=== PATIENT | female | born 1950 | race Caucasian/White ===

== ENCOUNTER 2019-01-13 13:56 | Inpatient (IN) | payer MEDICARE, OTHER ==
[~2019-01-13] VITALS: Ht 165.1 cm; Wt 93.4 kg
--- NOTE | 2019-01-13 14:08 | NUR ---
BIB [facility],TRIP/FALL WHILE GOING INTO A BANK LANDING ON HER RIGHT HIP, (+) R LEG SHORTENING AND EXTERNAL ROTATION. CYMRAES-SPEAKING ONLY, SPEAKS SOME THAI. SHOWING SEVERE PAIN THROUGH FACIAL EXPRESSION. AOX4, VSS, RR EVEN AND UNLABORED ON RA. SKIN INTACT. FAMILY AT BEDSIDE. ON MONITOR AND MADE COMFORTABLE. READY FOR EVAL.
[2019-01-13] MEDS ORDERED: HYDROMORPHONE 1 MG/1 ML DISP.SYRIN ONE ×3 (14:20→17:57)
[2019-01-13] MEDS ORDERED: ONDANSETRON HCL/PF 4 MG/2 ML VIAL ONE (14:20)
[2019-01-13] MEDS ORDERED: HYDROMORPHONE INJ 2 MG/ML DISP.SYRIN IV ONE (14:30)
[2019-01-13] MEDS ORDERED: ONDANSETRON HCL/PF 4 MG/2 ML VIAL IVP ONE (14:30)
[2019-01-13 14:31] LABS: BASOPHILS # (AUTO) 0.1 /CMM (0.0-0.2); BASOPHILS % (AUTO) 1.2 % (0.0-2.0); EOSINOPHILS % (AUTO) 3.5 % (0.0-6.0); HEMATOCRIT 41 % (33-45); HEMOGLOBIN 12.9 g/dL (11.5-14.8); LYMPHOCYTES # (AUTO) 4.3 /CMM (0.8-4.8); LYMPHOCYTES % (AUTO) 36.9 % (20.0-44.0); MEAN CORPUSCULAR HGB CONC 31 g/dl (31.0-36.0); MEAN CORPUSCULAR VOLUME 72 fL (82-100); MONOCYTES # (AUTO) 0.7 /CMM (0.1-1.30); MONOCYTES % (AUTO) 6.4 % (2.0-12.0); NEUTROPHILS # (AUTO) 6.1 /CMM (1.8-8.9); PLATELET COUNT (AUTO) 243 /CMM (150-450); RED BLOOD CELL COUNT(AUTO) 5.75 MIL/uL (4.0-5.2); WHITE BLOOD COUNT (AUTO) 11.7 K/uL (4.3-11.0)
[2019-01-13 14:42] LABS: CALCIUM, SERUM 9.7 mg/dL (8.5-10.1); CARBON DIOXIDE 26 mmol/L (21-32); CHLORIDE 106 mmol/L (98-107); GLUCOSE 133 mg/dL (74-106); POTASSIUM 4.1 mmol/L (3.5-5.1); SODIUM SERUM 144 mmol/L (136-145); UREA NITROGEN, BLOOD 17 mg/dL (7-18)
[2019-01-13] MEDS ORDERED: ISON300T19 PO (15:11)
[2019-01-13] MEDS ORDERED: GABA-534 PO (15:11)
[2019-01-13] MEDS ORDERED: LORA0.5T PO (15:11)
[2019-01-13] MEDS ORDERED: AMLO10TA7 PO (15:11)
[2019-01-13] MEDS ORDERED: PYRI50TA12 PO (15:11)
[2019-01-13] MEDS ORDERED: FLUT1BLS IH (15:11)
[2019-01-13] MEDS ORDERED: TRAZ-214 PO (15:11)
[2019-01-13] MEDS ORDERED: DOCU100C36 PO (15:11)
[2019-01-13] MEDS ORDERED: ALBU18HF2 PO (15:11)
[2019-01-13] MEDS ORDERED: IPIL50VI IJ (15:11)
[2019-01-13] MEDS ORDERED: SENN-175 PO (15:11)
[2019-01-13] MEDS ORDERED: HYDR-3980 PO (15:11)
--- NOTE | 2019-01-13 15:25 | NUR ---
INDWELLING CATHETER INSERTED PER PROTOCOL. PT HAD SOME PAIN BUT TOLERATED WELL.
--- NOTE | 2019-01-13 15:29 | NUR ---
CALLED CAROLINE GARG, MEDICAL APPOINTMENT SCHEDULER WAS PAGED.
[2019-01-13] MEDS ORDERED: TRAZODONE 50 MG TABLET PO PRN (16:30)
[2019-01-13] MEDS ORDERED: MAGNESIUM HYDROXIDE 30 ML UDC PO PRN (16:30)
[2019-01-13] MEDS ORDERED: ACETAMINOPHEN 325 MG TABLET PO PRN (16:30)
[2019-01-13] MEDS ORDERED: HYDROMORPHONE 1 MG/1 ML DISP.SYRIN IV ONE (16:30)
[2019-01-13] MEDS ORDERED: MAG HYDROX/AL HYDROX/SIMETH 30 ML UDC PO PRN (16:30)
[2019-01-13] MEDS ORDERED: ONDANSETRON HCL/PF 4 MG/2 ML VIAL IVP PRN (16:30)
--- NOTE | 2019-01-13 16:32 | NUR ---
CALLED CAROLINE GARG, NEW HOME SALES CONSULTANT WAS PAGED.
--- NOTE | 2019-01-13 17:00 | NUR ---
GOT BED FOR 7 205 RN IS JEREMY.
--- NOTE | 2019-01-13 18:00 | NUR ---
REPORT GIVEN TO VAL LUNA FOR 205
[2019-01-13] MEDS: HYDROMORPHONE 1 MG/1 ML DISP.SYRIN IV PRN ×3 (18:12→20:19)
[2019-01-13] MEDS: DOCUSATE SODIUM 100 MG CAPSULE PO SCH (18:35)
--- NOTE | 2019-01-13 18:37 | NUR ---
[facility]
--- NOTE | 2019-01-13 18:40 | NUR ---
MS/RN - Admission Received patient from ER, A/O x 3, c/o right hip pain, Dilaudid 1 mg IVP given in ER, stable on room air. Patient oriented to room and use of call light. Family at bedside updated on plan of care. Will endorse to night RN for completion of admission.
[2019-01-13 18:45] VITALS: BP 134/73
[2019-01-13] MEDS: ENOXAPARIN SODIUM 30 MG/0.3 ML DISP.SYRIN SQ SCH (18:45)
--- NOTE | 2019-01-13 19:00 | NUR ---
MS RN OPENING NOTES Patient received in bed, alert, oriented x 3. Family at bedside. Breathing even and unlabored. Sullivan catheter in place, draining well. Safety measures in place; call light within reach, bed in low, locked position. Will monitor accordingly
--- NOTE | 2019-01-13 19:03 | NUR ---
SEEN AND EXAMINED BY DR TIMMONS, WITH NEW ORDER FOR STAT EKG, NOTED AND CARRIED OUT
[2019-01-13 19:52] VITALS: BP 155/81
[2019-01-13 20:00] VITALS: BP 155/81
--- NOTE | 2019-01-13 20:00 | NUR ---
RN NOTES Telephone order received from Dr. Morteza Schwarz for R) Hip CT without contrast, R) Hip MRI without contrast, and R) Femur XR STAT. Orders noted and carried out
[2019-01-13] MEDS: IV NS 0.9% 1,000 ML IV PRN (20:30)
[2019-01-13] MEDS: FAMOTIDINE/PF INJ 20 MG/2 ML VIAL IV SCH (20:36)
--- NOTE | 2019-01-13 20:36 | NUR ---
RN NOTES Patient brought down for CT of R) hip
--- NOTE | 2019-01-13 20:57 | NUR ---
RN NOTES Patient arrived to unit from CT
--- NOTE | 2019-01-13 21:03 | NUR ---
RN NOTES Pedro from radiology called. Unable to do MRI tonight as there is no factory maintenance technician available
--- NOTE | 2019-01-13 21:05 | NUR ---
RN NOTES Patient's bed noted to have sheets and blankets underneath her. Patient and family refused for patient to be moved. As per family and patient, just leave the sheets for now
[2019-01-13] MEDS: LORAZEPAM INJ 2 MG/ML VIAL IV PRN (21:32)
[2019-01-13] MEDS: SENNOSIDES 8.6 MG TABLET PO SCH (21:40)
[2019-01-14] MEDS: HYDROMORPHONE 1 MG/1 ML DISP.SYRIN IV PRN ×6 (00:55→23:20)
--- NOTE | 2019-01-14 04:50 | NUR ---
RN NOTES Patient c/o R) hip pain, 02/19. BP- 158/78, HR- 74. Dilaudid 1mg given as ordered
[2019-01-14 06:12] LABS: BASOPHILS % (AUTO) 0.3 % (0.0-2.0); EOSINOPHILS % (AUTO) 0.2 % (0.0-6.0); HEMATOCRIT 35 % (33-45); LYMPHOCYTES # (AUTO) 1.7 /CMM (0.8-4.8); LYMPHOCYTES % (AUTO) 14.1 % (20.0-44.0); MEAN CORPUSCULAR HGB CONC 31 g/dl (31.0-36.0); MEAN CORPUSCULAR VOLUME 72 fL (82-100); MONOCYTES # (AUTO) 1.1 /CMM (0.1-1.30); MONOCYTES % (AUTO) 9.3 % (2.0-12.0); NEUTROPHILS # (AUTO) 9.1 /CMM (1.8-8.9); NEUTROPHILS % (AUTO) 76.1 % (43.0-81.0); PLATELET COUNT (AUTO) 206 /CMM (150-450); RED BLOOD CELL COUNT(AUTO) 4.88 MIL/uL (4.0-5.2)
[2019-01-14 06:25] LABS: CREATININE 0.9 mg/dL (0.6-1.3); PHOSPHORUS 4.3 mg/dL (2.5-4.9); POTASSIUM 4.6 mmol/L (3.5-5.1)
--- NOTE | 2019-01-14 06:25 | NUR ---
MS RN CLOSING NOTES Patient in bed, sleeping. Easy to arouse. Breathing even and unlabored. Not in any distress. No complaints at this time. is currently at bedside. Peripheral IV infusing at 75mL/hr. All needs attended to. All due medications given as ordered. Will endorse STEPAN to oncoming RN
[2019-01-14 06:37] LABS: THYROID STIMULATING HORMONE 3.756 uIU/mL (0.358-3.74)
[2019-01-14] MEDS: FLUTICASONE/VILANTEROL 1 EACH BLST.W.DEV IH SCH (07:43)
[2019-01-14] MEDS: LORAZEPAM INJ 2 MG/ML VIAL IV PRN ×2 (07:44→17:38)
[2019-01-14 08:00] VITALS: BP 151/72
--- NOTE | 2019-01-14 08:00 | NUR ---
MS RN AM NOTES Patient in bed, sleeping. Easy to arouse. Breathing even and unlabored. Not in any distress. No complaints at this time. is currently at bedside. Peripheral IV NS infusing well at 75mL/hr. On NPO for pending ortho sx. PRN meds given with effective result. Will continue to monitor. Notified ASHLEIGH Pro. Call light placed within reach.
[2019-01-14] MEDS: DOCUSATE SODIUM 100 MG CAPSULE PO SCH ×2 (08:03→16:36)
[2019-01-14] MEDS: FAMOTIDINE/PF INJ 20 MG/2 ML VIAL IV SCH ×2 (08:03→20:29)
[2019-01-14] MEDS: ISONIAZID (300 MG) 300 MG TABLET PO SCH (08:03)
[2019-01-14] MEDS: AMLODIPINE BESYLATE 5 MG TABLET PO SCH (08:03)
[2019-01-14] MEDS: PYRIDOXINE HCL 50 MG TABLET PO SCH (08:04)
--- NOTE | 2019-01-14 09:30 | NUR ---
CALLED ASHLEIGH PEREZ AND CLARIFIED IF PT IS GOING TO HAVE SX TODAY.CHRIS STATED THAT THE PT CAN EAT NOW AND WILL DO SX TOMORROW.FAMILY MADE AWARE.
[2019-01-14] MEDS: IV NS 0.9% 1,000 ML IV PRN (10:14)
--- NOTE | 2019-01-14 12:00 | NUR ---
CAME BACK FROM MRI
--- NOTE | 2019-01-14 14:19 | NUR ---
CALLED [facility], [facility] AND SPOKE TO BIJAN TO FOLLOW UP PT'S MEDICAL RECORDS FROM ONCOLOGIST.FAXED MEDICAL RECORD REQUEST IN AM BUT STILL NO AVAIL.
[2019-01-14] MEDS ORDERED: LORAZEPAM INJ 2 MG/ML VIAL IV PRN (15:30)
[2019-01-14] MEDS ORDERED: HYDROMORPHONE 1 MG/1 ML DISP.SYRIN IV PRN (15:30)
[2019-01-14 15:44] LABS: APPEARANCE,URINE CLOUDY (CLEAR); BILIRUBIN,URINE NEGATIVE (NEGATIVE); BLOOD, URINE TRACE Ery/uL (NEGATIVE); COLOR,URINE YELLOW (YELLOW); KETONES,URINE NEGATIVE (NEGATIVE); LEUKOCYTE ESTERASE ,URINE NEGATIVE (NEGATIVE); NITRITE, URINE NEGATIVE (NEGATIVE); PROTEIN,URINE TRACE mg/dl (NEGATIVE); UGLUCOSE NEGATIVE (NEGATIVE); UROBILINOGEN,URINE 0.2 EU/dL (0.2)
[2019-01-14 16:36] LABS: BACTERIA,URINE None seen /HPF (None Seen); RBC,URINE 0-2 /HPF (0-2); SQUAMOUS EPITHELIAL CELL,UR Few /HPF (None Seen); URINE AMORPHOUS URATE Many /HPF (None Seen); WBC,URINE 0-2 /HPF (0-3)
--- NOTE | 2019-01-14 18:46 | NUR ---
MS RN CLOSING NOTES Patient in bed, sleeping. Easy to arouse. Breathing even and unlabored. Not in any distress. No complaints at this time. Peripheral IV infusing at 75mL/hr. All needs attended to. All due medications given as ordered. Pain med and Ativan PRN given is effective.Awaiting for family for the consent for tomorrow's right hip intramedullary rodding.Will endorse STEPAN to oncoming RN
--- NOTE | 2019-01-14 19:15 | NUR ---
MS RN OPENING NOTES Received patient intermittently asleep, on supine position on bed. Patient and family refused reposition the patient due to pain at the R hip upon movement. Administered Dilaudid as ordered, will continue to monitor accordingly. On O2 inhalation via NC, no SOB/respiratory distress noted. Kept on bed clean, dry and comfortable. Call light within easy reach. Will continue to monitor accordingly.
[2019-01-14 20:00] VITALS: BP 148/83
[2019-01-14] MEDS: ENOXAPARIN SODIUM 30 MG/0.3 ML DISP.SYRIN SQ SCH (20:27)
--- NOTE | 2019-01-14 20:27 | NUR ---
MS RN NOTES Patient is for surgery tomorrow. Held due Lovenox at this time.
[2019-01-14] MEDS: SENNOSIDES 8.6 MG TABLET PO SCH (21:10)
[2019-01-15] MEDS: IV NS 0.9% 1,000 ML IV PRN (01:37)
[2019-01-15] MEDS: LORAZEPAM INJ 2 MG/ML VIAL IV PRN (03:40)
[2019-01-15 06:20] LABS: BASOPHILS # (AUTO) 0.1 /CMM (0.0-0.2); BASOPHILS % (AUTO) 0.4 % (0.0-2.0); EOSINOPHILS % (AUTO) 0.1 % (0.0-6.0); HEMATOCRIT 31 % (33-45); HEMOGLOBIN 9.9 g/dL (11.5-14.8); LYMPHOCYTES # (AUTO) 1.8 /CMM (0.8-4.8); LYMPHOCYTES % (AUTO) 13.2 % (20.0-44.0); MEAN CORPUSCULAR HGB CONC 32 g/dl (31.0-36.0); MEAN CORPUSCULAR VOLUME 71 fL (82-100); MONOCYTES # (AUTO) 1.1 /CMM (0.1-1.30); MONOCYTES % (AUTO) 8.3 % (2.0-12.0); NEUTROPHILS # (AUTO) 10.7 /CMM (1.8-8.9); PLATELET COUNT (AUTO) 167 /CMM (150-450); RED BLOOD CELL COUNT(AUTO) 4.39 MIL/uL (4.0-5.2); WHITE BLOOD COUNT (AUTO) 13.7 K/uL (4.3-11.0)
[2019-01-15 06:50] LABS: ALBUMIN 3.2 g/dL (3.4-5.0); BILIRUBIN,DIRECT 0.2 mg/dL (0.0-0.2); BILIRUBIN,TOTAL 0.6 mg/dL (0.2-1.0); MAGNESIUM 1.9 mg/dL (1.8-2.4); PHOSPHORUS 2.2 mg/dL (2.5-4.9); POTASSIUM 4.1 mmol/L (3.5-5.1); TOTAL PROTEIN, SERUM 6.9 g/dL (6.4-8.2)
--- NOTE | 2019-01-15 07:29 | NUR ---
MS RN CLOSING NOTES Patient asleep, easily awaken. Medicated for pain, noted effective. All due meds given as ordered, no ASE noted. All nursing needs attended. Kept on bed clean, dry, and comfortable. On fall precautions. Call light at bedside. Endorsed to the next shift.
[2019-01-15 08:00] VITALS: BP 162/77
--- NOTE | 2019-01-15 08:00 | NUR ---
MS RN AM NOTES Patient in bed, sleeping. Easy to arouse. Breathing even and unlabored. Not in any distress. No complaints at this time. Family is currently at bedside. Peripheral IV NS infusing well at 75mL/hr. On NPO for pending ortho sx. PRN meds given with effective result. Will continue to monitor. Call light placed within reach.
--- NOTE | 2019-01-15 08:00 | NUR ---
MS RN AM NOTES Patient in bed, sleeping. Easy to arouse. Breathing even and unlabored. Not in any distress. No complaints at this time. Family is currently at bedside. Peripheral IV NS infusing well at 75mL/hr. On NPO for pending ortho sx. PRN meds given with effective result. Will continue to monitor. Notified ASHLEIGH Pro. Call light placed within reach.
[2019-01-15] MEDS: FAMOTIDINE/PF INJ 20 MG/2 ML VIAL IV SCH ×2 (08:14→22:32)
[2019-01-15] MEDS: HYDROMORPHONE 1 MG/1 ML DISP.SYRIN IV PRN ×3 (08:15→23:46)
--- NOTE | 2019-01-15 08:20 | NUR ---
Pt signed all the Ortho sx consents.
[2019-01-15] MEDS: PYRIDOXINE HCL 50 MG TABLET PO SCH (08:39)
[2019-01-15] MEDS: ISONIAZID (300 MG) 300 MG TABLET PO SCH (08:39)
[2019-01-15] MEDS: DOCUSATE SODIUM 100 MG CAPSULE PO SCH ×2 (08:39→16:54)
[2019-01-15] MEDS: FLUTICASONE/VILANTEROL 1 EACH BLST.W.DEV IH SCH (08:39)
[2019-01-15] MEDS: AMLODIPINE BESYLATE 5 MG TABLET PO SCH (09:00)
[2019-01-15] MEDS ORDERED: K PHOS NEUTRAL 250 MG TABLET PO ONE (09:30)
--- NOTE | 2019-01-15 10:00 | NUR ---
PT WAS BROUGHT TO O.R. FOR RT HIP INTRAMEDULLARY RODDING.ON NPO.WILL ADMINISTER KPO4 500 MG PO PILL WHEN SHE COMES BACK FROM O.R. S/P SX.
[2019-01-15] MEDS ORDERED: ANESTHESIA TRAY IN PYXIS 1 EA TRAY MC ONE (10:54)
[2019-01-15] MEDS ORDERED: BUPIVACAINE 0.5 % PF 150 MG/30 ML VIAL ONE (11:44)
[2019-01-15] MEDS ORDERED: BACITRACIN 50000 UNITS/VIAL ONE (11:44)
[2019-01-15] MEDS ORDERED: ALBUTEROL FS 2.5 MG/3 ML VIAL.NEB ONE (12:34)
[2019-01-15 13:09] LABS: BASOPHILS # (AUTO) 0.1 /CMM (0.0-0.2); BASOPHILS % (AUTO) 0.3 % (0.0-2.0); HEMATOCRIT 30 % (33-45); HEMOGLOBIN 9.3 g/dL (11.5-14.8); LYMPHOCYTES # (AUTO) 3.2 /CMM (0.8-4.8); LYMPHOCYTES % (AUTO) 13.1 % (20.0-44.0); MEAN CORPUSCULAR HGB CONC 32 g/dl (31.0-36.0); MEAN CORPUSCULAR VOLUME 71 fL (82-100); MONOCYTES # (AUTO) 1.5 /CMM (0.1-1.30); MONOCYTES % (AUTO) 6.1 % (2.0-12.0); NEUTROPHILS # (AUTO) 19.7 /CMM (1.8-8.9); NEUTROPHILS % (AUTO) 80.5 % (43.0-81.0); PLATELET COUNT (AUTO) 207 /CMM (150-450); RED BLOOD CELL COUNT(AUTO) 4.15 MIL/uL (4.0-5.2); WHITE BLOOD COUNT (AUTO) 24.4 K/uL (4.3-11.0)
[2019-01-15 13:19] LABS: CALCIUM, SERUM 8.3 mg/dL (8.5-10.1); CREATININE 0.9 mg/dL (0.6-1.3)
--- NOTE | 2019-01-15 13:40 | NUR ---
PT CAME BACK FORM O.R. S/P RT HIP INTRAMEDULLARY RODDING BY DR RAMSAY -PT IS VERBALLY RESPONSIVE AND SLEEPING BUT AROUSABLE.DRESSING TO RT HIP AND THIGH IS CLEAN AND DRY. NO S/S OF PAIN OR DISTRESS.WILL MONITOR. WILL ADMINISTER KPO4 PILL WHEN THE PT IS MORE AWAKE.FAMILY AT BEDSIDE.
[2019-01-15 16:00] VITALS: BP 132/69
--- NOTE | 2019-01-15 18:43 | NUR ---
SLEEPING BUT AROUSABLE WITH NO S/S OF PAIN OR DISTRESS.ABLE TO MOVE JATIN TOES.WILL CONTINUE TO MONITOR.WITH IVF NS INFUSING WELL.TRINIDAD BAG EMPTIED WITH YELLOW URINE 450 ML OUTPUT.CALL LIGHT WITHIN REACH.
--- NOTE | 2019-01-15 19:27 | NUR ---
MS/RN NOTES RECEIVED PT. LYING IN BED. PT. IS AWAKE, ALERT AND ORIENTED X3. BREATHING EVEN AND UNLABORED ON 2LPM O2 VIA NC. NO SOB, RESPIRATORY DISTRESS OR COMPLAINTS OF PAIN NOTED AT THIS TIME. PT. WITH RIGHT AC 20 GAUGE PERIPHERAL IV PRESENT, PATENT AND INTACT ADMINISTERING TO PT. NS @ 75 ML/HR. PT. WITH RIGHT CHEST WALL PORT A CATH PRESENT AND INTACT. PT. WITH TRINIDAD CATHETER PRESENT AND INTACT DRAINING YELLOW URINE WITH SEDIMENT. PT. IS S/P RIGHT HIP INTRAMEDULLARY RODDING 01/15/[address] RAMSAY. PT. WITH RIGHT UPPER EXTREMITY POST OP DRESSINGS PRESENT, CLEAN, DRY AND INTACT. NO BLEEDING OR DRAINING NOTED. PT. WITH FAMILY MEMBERS PRESENT AT BEDSIDE.
[2019-01-15 20:00] VITALS: BP 144/56
[2019-01-15] MEDS: ENOXAPARIN SODIUM 30 MG/0.3 ML DISP.SYRIN SQ SCH (22:31)
[2019-01-15] MEDS: SENNOSIDES 8.6 MG TABLET PO SCH (22:32)
--- NOTE | 2019-01-16 01:54 | NUR ---
MS/RN NOTES NOTIFIED EPIC INSTRUMENTATION AND CONTROLS DESIGNER BALJINDER WILKES PT. WBC COUNT 24.4. AND PT. DID NOT RECEIVE 2ND DOSE OF ANCEF 2GM ORDERED. PER BALJINDER WILKES OKAY TO GIVE ANCEF 2GM IVPB X1 NOW. WILL CARRY OUT ORDER. WILL CONTINUE TO MONITOR.
[2019-01-16] MEDS ORDERED: CEFAZOLIN 2 GM in IV D5W 50 ML IV ONE ×2 (02:00→09:00)
--- NOTE | 2019-01-16 02:54 | NUR ---
MS/RN NOTES NOTIFIED EPIC MAGNETIC RESONANCE IMAGING DIRECTOR BALJINDER WILKES ANCEF 2GM MEDICATION NOT AVAILABLE PER NURSING STITCH CLEANER AND ALL OMNICELLS CHECKED. PER BALJINDER WILKES NO NEW ORDERS AT THIS TIME, ENDORSE ADMINISTRATION OF MEDICATION TO DAYSHIFT. WILL CARRY OUT ORDER AND WILL CONTINUE TO MONITOR.
[2019-01-16] MEDS: LORAZEPAM INJ 2 MG/ML VIAL IV PRN (04:30)
[2019-01-16 06:28] LABS: CALCIUM, SERUM 8.6 mg/dL (8.5-10.1); PHOSPHORUS 2.6 mg/dL (2.5-4.9); POTASSIUM 3.9 mmol/L (3.5-5.1)
--- NOTE | 2019-01-16 07:00 | NUR ---
MS/RN NOTES PT. IS LYING IN BED RESTING. BREATHING EVEN AND UNLABORED ON 2LPM O2 VIA NC. NO SOB, RESPIRATORY DISTRESS OR COMPLAINTS OF PAIN NOTED AT THIS TIME. PT. WITH RIGHT FOREARM 22 GAUGE PERIPHERAL IV PRESENT, PATENT AND INTACT ADMINISTERING TO PT. NS @ 75 ML/HR. PT. WITH RIGHT CHEST WALL PORT A CATH PRESENT AND INTACT. PT. WITH TRINIDAD CATHETER PRESENT AND INTACT DRAINING YELLOW URINE WITH SEDIMENT. PT. IS S/P RIGHT HIP INTRAMEDULLARY RODDING 01/15/[address] RAMSAY. PT. WITH RIGHT UPPER EXTREMITY POST OP DRESSINGS PRESENT, CLEAN, DRY AND INTACT. NO BLEEDING OR DRAINING NOTED. PT. PRESENT AT BEDSIDE. ALL PT. NEEDS MET. WILL ENDORSE PT. TO DAYSNJFT NURSE FOR CONTINUITY OF CARE.
[2019-01-16 07:23] LABS: BASOPHILS % (AUTO) 0.3 % (0.0-2.0); HEMATOCRIT 28 % (33-45); HEMOGLOBIN 8.6 g/dL (11.5-14.8); LYMPHOCYTES % (AUTO) 12.5 % (20.0-44.0); MEAN CORPUSCULAR HGB CONC 31 g/dl (31.0-36.0); MEAN CORPUSCULAR VOLUME 73 fL (82-100); MONOCYTES # (AUTO) 1.4 /CMM (0.1-1.30); MONOCYTES % (AUTO) 8.6 % (2.0-12.0); NEUTROPHILS # (AUTO) 12.4 /CMM (1.8-8.9); NEUTROPHILS % (AUTO) 78.6 % (43.0-81.0); PLATELET COUNT (AUTO) 130 /CMM (150-450); RED BLOOD CELL COUNT(AUTO) 3.81 MIL/uL (4.0-5.2); WHITE BLOOD COUNT (AUTO) 15.8 K/uL (4.3-11.0)
--- NOTE | 2019-01-16 07:40 | NUR ---
M/S RN NOTES PATIENT RESTING, LYING IN BED, FAMILY AT BEDSIDE. PATIENT IN NO RESPIRATORY DISTRESS, NO C/O PAIN AT THIS TIME. IV ON THE RFA #22G, INTACT AND PATENT, IV NS RUNNING AT 75ML/HR. PORT A CATH ON THE RT CHEST WALL, INTACT. F/C INTACT AND DRAINING YELLOW URINE WITH SEDIMENT. PATIENT'S DRESSING CLEAN, DRY AND INTACT. PATIENT'S NEEDS ATTENDED. BED ON LOWEST LOCKED POSITION, CALL LIGHT WITHIN REACH. WILL CONTINUE TO MONITOR.
[2019-01-16 08:00] VITALS: BP 158/71
[2019-01-16] MEDS: ISONIAZID (300 MG) 300 MG TABLET PO SCH (08:59)
[2019-01-16] MEDS: FLUTICASONE/VILANTEROL 1 EACH BLST.W.DEV IH SCH (08:59)
[2019-01-16] MEDS: DOCUSATE SODIUM 100 MG CAPSULE PO SCH ×2 (09:00→16:53)
[2019-01-16] MEDS: PYRIDOXINE HCL 50 MG TABLET PO SCH (09:00)
[2019-01-16] MEDS: FAMOTIDINE/PF INJ 20 MG/2 ML VIAL IV SCH ×2 (09:00→21:04)
[2019-01-16] MEDS: AMLODIPINE BESYLATE 5 MG TABLET PO SCH (09:00)
--- NOTE | 2019-01-16 09:00 | NUR ---
M/S RN NOTES ADMINISTERED 2ND DOSE OF ANCEF 2MG IV. MEDICATION WAS NOT AVAILABLE AT 0200 PER VAL GARZON.
[2019-01-16] MEDS: IV NS 0.9% 1,000 ML IV PRN (10:03)
[2019-01-16] MEDS: HYDROMORPHONE 1 MG/1 ML DISP.SYRIN IV PRN ×2 (10:45→19:46)
[2019-01-16] MEDS: SOD FERRIC GLUC 125 MG in IV NS 0.9% 100 ML IV SCH (13:48)
[2019-01-16 16:00] VITALS: BP 147/71
--- NOTE | 2019-01-16 18:23 | NUR ---
M/S RN NOTES PATIENT AWAKE, LYING IN BED, IN NO RESPIRATORY DISTRESS, NO C/O PAIN AT THIS TIME. IV NS INFUSING AT 75ML/HR ON THE RFA #22G, INTACT AND PATENT, NO REDNESS, NO INFILTRATION. FAMILY AT BEDSIDE. PATIENT'S NEEDS ATTENDED. BED ON LOWEST LOCKED POSITION, CALL LIGHT WITHIN REACH. WILL ENDORSE TO ONCOMING NURSE.
--- NOTE | 2019-01-16 19:30 | NUR ---
RECEIVED PATIENT IN BED AWAKE, AO X 3, ABLE TO MAKE NEEDS KNOWN. NO ACUTE DISTRESS NOTED. MONITORED FOR PAIN. IV SITE PATENT, INTACT; IVF INFUSING ORDERED. RIGHT HIP SURGICAL DRESSINGS INTACT. SAFETY REMINDERS GIVEN. ON LOW BED WITH BILATERAL UPPER SIDE RAILS UP. CALL ANTOINE WITHIN EASY REACH. WILL CONTINUE TO MONITOR. FAMILY AT BEDSIDE.
[2019-01-16 20:00] VITALS: BP 140/69
[2019-01-16 20:20] VITALS: BP 140/69
[2019-01-16] MEDS: SENNOSIDES 8.6 MG TABLET PO SCH (21:04)
[2019-01-16] MEDS: ENOXAPARIN SODIUM 30 MG/0.3 ML DISP.SYRIN SQ SCH (21:05)
--- NOTE | 2019-01-16 23:20 | NUR ---
DR. RAMSAY AT BEDSIDE WITH PATIENT; SPOKE WITH FAMILY.
[2019-01-17] MEDS: HYDROMORPHONE 1 MG/1 ML DISP.SYRIN IV PRN ×4 (02:16→20:58)
[2019-01-17] MEDS: IV NS 0.9% 1,000 ML IV PRN ×2 (02:19→18:22)
--- NOTE | 2019-01-17 06:00 | NUR ---
PATIENT WITH ASLEEP, EASILY AROUSABLE. RESPIRATIONS EVEN. NO SIGNS OF PAIN NOTED. DUE MEDS GIVEN WITH NO ASE NOTED. IVF INFUSING ORDERED. NEEDS ATTENDED. KEPT CLEAN AND DRY. SAFETY PRECAUTIONS AND COMFORT MEASURES IN PLACE. WILL GIVE REPORT TO DAY SHIFT FOR CONTINUITY OF CARE.
[2019-01-17 07:14] LABS: BASOPHILS % (AUTO) 0.3 % (0.0-2.0); EOSINOPHILS % (AUTO) 0.2 % (0.0-6.0); HEMATOCRIT 23 % (33-45); HEMOGLOBIN 7.3 g/dL (11.5-14.8); LYMPHOCYTES # (AUTO) 1.9 /CMM (0.8-4.8); LYMPHOCYTES % (AUTO) 13.6 % (20.0-44.0); MEAN CORPUSCULAR HGB CONC 32 g/dl (31.0-36.0); MEAN CORPUSCULAR VOLUME 72 fL (82-100); MONOCYTES % (AUTO) 6.7 % (2.0-12.0); NEUTROPHILS # (AUTO) 11.3 /CMM (1.8-8.9); NEUTROPHILS % (AUTO) 79.2 % (43.0-81.0); PLATELET COUNT (AUTO) 191 /CMM (150-450); RED BLOOD CELL COUNT(AUTO) 3.19 MIL/uL (4.0-5.2); WHITE BLOOD COUNT (AUTO) 14.3 K/uL (4.3-11.0)
--- NOTE | 2019-01-17 07:45 | NUR ---
M/S RN OPENING NOTES RECEIVED PATIENT ON BED ASLEEP BUT EASILY AROUSABLE. RESPIRATION EVEN AND NON LABORED WITH NO ACUTE RESPIRATORY DISTRESS. ABDOMEN SOFT AND NON DISTENDED WITH ACTIVE BOWEL SOUNDS. SKIN WARM TO TOUCH AND DRY. FEET SENSATION PRESENT, ON SCD BLE. DENIES PAIN AND DISCOMFORT, JUST SLEEPY. IV SITE AT [facility] RUNNING NS 75 ML/HR, NO S/SX OF INFILTRATION. ALL CONCERNS ADDRESSED. CALL LIGHT WITHIN REACH. WILL CONTINUE TO EVALUATE CARE
[2019-01-17 07:54] LABS: ALBUMIN 2.7 g/dL (3.4-5.0); CALCIUM, SERUM 8.3 mg/dL (8.5-10.1); CREATININE 0.9 mg/dL (0.6-1.3); MAGNESIUM 2.1 mg/dL (1.8-2.4); PHOSPHORUS 2.1 mg/dL (2.5-4.9); POTASSIUM 3.1 mmol/L (3.5-5.1); TOTAL PROTEIN, SERUM 6.4 g/dL (6.4-8.2)
[2019-01-17 08:00] VITALS: BP 142/73
[2019-01-17 08:06] LABS: IMMUNOGLOBULIN A, SERUM 123 mg/dL (87-352); IMMUNOGLOBULIN G, SERUM 568 mg/dL (700-1600); IMMUNOGLOBULIN M, SERUM 254 mg/dL (26-217)
[2019-01-17] MEDS: ISONIAZID (300 MG) 300 MG TABLET PO SCH (08:35)
[2019-01-17] MEDS: PYRIDOXINE HCL 50 MG TABLET PO SCH (08:35)
[2019-01-17] MEDS: DOCUSATE SODIUM 100 MG CAPSULE PO SCH ×2 (08:36→16:24)
[2019-01-17] MEDS: AMLODIPINE BESYLATE 5 MG TABLET PO SCH (08:36)
[2019-01-17] MEDS: FAMOTIDINE/PF INJ 20 MG/2 ML VIAL IV SCH ×2 (08:36→21:28)
[2019-01-17] MEDS: FLUTICASONE/VILANTEROL 1 EACH BLST.W.DEV IH SCH (08:36)
--- NOTE | 2019-01-17 10:15 | NUR ---
M/S RN NOTES PT SEEN BY OLMAN. NEW ORDER TO D/C LOVENOX CHANGE TO XARELTO, START ENSURE CHOCOLATE, GIVE POTASSIUM ORDERED. PLACED ON DC PLANNING TO ACUTE REHAB. JASBIR CASE MANAGEMENT NOTIFIED
[2019-01-17] MEDS ORDERED: POTASSIUM CHLORIDE 20 MEQ TAB.PRT.SR PO ONE (10:30)
[2019-01-17] MEDS ORDERED: ENSURE ENLIVE CHOC 237 ML CAN PO SCH (10:30)
[2019-01-17] MEDS ORDERED: K PHOS NEUTRAL 250 MG TABLET PO ONE (11:30)
[2019-01-17 11:39] LABS: BAND % (MANUAL) 7 % (0.0-5.0); LYMPHOCYTES % (MANUAL) 8 % (16-48); MONOCYTES % (MANUAL) 3 % (0-11.0); NEUTROPHILS % (MANUAL) 82 (42-76)
--- NOTE | 2019-01-17 11:52 | NUR ---
M/S RN NOTES PT SEEN BY PT. WALKED 5 FT MAX. ORDERED FWW.
[2019-01-17] MEDS: ENSURE ENLIVE CHOC 237 ML CAN PO SCH ×2 (12:56→18:18)
[2019-01-17] MEDS: SOD FERRIC GLUC 125 MG in IV NS 0.9% 100 ML IV SCH (14:22)
[2019-01-17] MEDS: RIVAROXABAN 10 MG TABLET PO SCH (16:25)
--- NOTE | 2019-01-17 17:51 | NUR ---
M/S RN NOTES PT SEEN BY ASSEMBLER UNIT
--- NOTE | 2019-01-17 19:15 | NUR ---
MS RN OPENING NOTES Patient received in bed with HOB elevated, watching TV. Alert, oriented x 3. Breathing even and unlabored. Not in any distress, No complaints of pain at this time. Dressing checked, clean, intact and dry. Safety measures in place; call light within reach, bed in low, locked position. Will continue to monitor accordingly
--- NOTE | 2019-01-17 19:27 | NUR ---
M/S RN CLOSING NOTES PATIENT A/O X 4, ASSESSED NO SOB. ABDOMEN SOFT AND NON DISTENDED WITH ACTIVE BOWEL SOUNDS, BM X1 TODAY. SKIN WARM TO TOUCH AND DRY. DENIES PAIN AND DISCOMFORT,. GAVE DILAUDID ORDERED AND EFFECTIVE. IV SITE AT RFA GAUGE 22 RUNNING NS 75 ML/HR, NO S/SX OF INFILTRATION. ALL CONCERNS ADDRESSED. CALL LIGHT WITHIN REACH. ENDORSED PT CARE TO NEXT SHIFT
[2019-01-17 20:00] VITALS: BP 137/68
--- NOTE | 2019-01-17 20:59 | NUR ---
RN NOTES Patient c/o R) hip pain, 01/20, after a diaper change. Requesting for pain shot. BP- 137/68, HR- 92. Dilaudid 1mg given as ordered. Will continue to monitor
[2019-01-17] MEDS: SENNOSIDES 8.6 MG TABLET PO SCH (21:28)
[2019-01-18] VITALS (14 sets, daily range): BP systolic 104–151; BP diastolic 57–73
[2019-01-18] MEDS: HYDROMORPHONE 1 MG/1 ML DISP.SYRIN IV PRN ×5 (00:26→21:12)
[2019-01-18 06:48] LABS: BASOPHILS % (AUTO) 0.2 % (0.0-2.0); EOSINOPHILS % (AUTO) 0.8 % (0.0-6.0); HEMATOCRIT 21 % (33-45); LYMPHOCYTES # (AUTO) 1.9 /CMM (0.8-4.8); LYMPHOCYTES % (AUTO) 18.7 % (20.0-44.0); MEAN CORPUSCULAR HGB CONC 32 g/dl (31.0-36.0); MEAN CORPUSCULAR VOLUME 72 fL (82-100); MONOCYTES # (AUTO) 0.6 /CMM (0.1-1.30); MONOCYTES % (AUTO) 6.4 % (2.0-12.0); NEUTROPHILS # (AUTO) 7.4 /CMM (1.8-8.9); NEUTROPHILS % (AUTO) 73.9 % (43.0-81.0); PLATELET COUNT (AUTO) 197 /CMM (150-450); RED BLOOD CELL COUNT(AUTO) 2.93 MIL/uL (4.0-5.2)
[2019-01-18] MEDS: IV NS 0.9% 1,000 ML IV PRN ×2 (06:53→21:11)
--- NOTE | 2019-01-18 06:53 | NUR ---
MS RN CLOSING NOTES Patient in bed, sleeping, aasy to arouse. Breathing even and unlabored. Not in any distress. No complaints at this time. is currently at bedside. Peripheral IV infusing at 75mL/hr. Patient kept clean, dry and comfortable. All needs attended to. All due medications given as ordered. Will endorse STEPAN to oncoming RN
[2019-01-18 06:54] LABS: CALCIUM, SERUM 8.3 mg/dL (8.5-10.1); CREATININE 0.7 mg/dL (0.6-1.3); POTASSIUM 3.2 mmol/L (3.5-5.1)
[2019-01-18 07:26] LABS: HEMOGLOBIN 6.8 g/dL (11.5-14.8)
--- NOTE | 2019-01-18 07:41 | NUR ---
MS RN OPENING NOTES RECEIVED PT SITTING UPRIGHT IN BED, RESTING COMFORTABLY. PT IS ALERT AND RESPONSIVE TO VERBAL AND TACTILE STIMULI. AFEBRILE. RESPIRATIONS ARE EVEN AND UNLABORED, NOT IN ANY ACUTE DISTRESS NOTED. PT DENIES ANY SOB, N/V AT THIS TIME. IV SITE TO RFA INTACT, NO INFILTRATION NOTED. DRESSING KEPT CLEAN AND DRY. SAFETY MEASURES ARE IN PLACE. INSTRUCTED PT TO USE CALL LIGHT WHEN ASSISTANCE IS NEEDED, CALL LIGHT IS LEFT WITHIN REACH. WILL MONITOR THROUGHOUT SHIFT FOR CONTINUITY OF CARE.
[2019-01-18] MEDS: PYRIDOXINE HCL 50 MG TABLET PO SCH (08:13)
[2019-01-18] MEDS: FAMOTIDINE/PF INJ 20 MG/2 ML VIAL IV SCH ×2 (08:14→20:04)
[2019-01-18] MEDS: AMLODIPINE BESYLATE 5 MG TABLET PO SCH (08:14)
[2019-01-18] MEDS: DOCUSATE SODIUM 100 MG CAPSULE PO SCH ×2 (08:14→16:15)
[2019-01-18] MEDS: ISONIAZID (300 MG) 300 MG TABLET PO SCH (08:14)
[2019-01-18] MEDS: FLUTICASONE/VILANTEROL 1 EACH BLST.W.DEV IH SCH (08:14)
[2019-01-18 08:44] LABS: EOSINOPHILS % (MANUAL) 2 % (0-4); LYMPHOCYTES % (MANUAL) 16 % (16-48); MONOCYTES % (MANUAL) 7 % (0-11.0); NEUTROPHILS % (MANUAL) 75 (42-76)
[2019-01-18] MEDS: GLUCERNA SHAKE 237 ML CAN PO SCH ×2 (08:48→16:15)
[2019-01-18] MEDS: POTASSIUM CHLORIDE 20 MEQ TAB.PRT.SR PO SCH ×3 (08:59→10:23)
--- NOTE | 2019-01-18 12:20 | NUR ---
MS RN NOTES-- BLOOD TRANSFUSION STARTED. PT VITALS ARE STABLE AND WNL. WILL CONTINUE TO MONITOR.
--- NOTE | 2019-01-18 12:35 | NUR ---
MS RN NOTES-- TOLERATING BLOOD TRANSFUSION. NO ASE NOTED. VITAL SIGNS WNL. WILL CONTINUE TO MONITOR.
--- NOTE | 2019-01-18 13:05 | NUR ---
MS RN NOTES-- BLOOD PRESSURE 104/57. PT DENIES ANY DIZZINESS, CHEST PAIN, N/V. DENIES ANY ASE. WILL CONTINUE TO MONITOR.
--- NOTE | 2019-01-18 14:38 | NUR ---
MS R NOTES-- CALLED PHARMACY, SPOKE WITH FERNANDO RE: SHAUNNA. PER FERNANDO, IT WILL BE SENT.
--- NOTE | 2019-01-18 15:20 | NUR ---
MS RN NOTES-- RECEIVED A CALL FROM PHARMACY RE: TIME OF FERRELICIT ADMINISTRATION. BECAUSE BLOOD TRANSFUSION IS STILL RUNNING, NOTIFIED PHARMACY THAT TRANSFUSION WILL BE DONE WITHIN ONE HOUR.
--- NOTE | 2019-01-18 15:45 | NUR ---
MS RN NOTES-- BLOOD TRANSFUSION COMPLETED. NO ASE NOTED. VITAL SIGNS ARE WNL. WILL CONTINUE TO MONITOR.
[2019-01-18] MEDS: SOD FERRIC GLUC 125 MG in IV NS 0.9% 100 ML IV SCH (16:15)
[2019-01-18] MEDS: RIVAROXABAN 10 MG TABLET PO SCH (16:18)
[2019-01-18 17:38] LABS: HEMOGLOBIN 8.8 g/dL (11.5-14.8)
--- NOTE | 2019-01-18 18:34 | NUR ---
MS RN CLOSING NOTES ALL DUE MEDS GIVEN. NEEDS MET AND ANTICIPATED. PT IS A/O X4, AFEBRILE. RESPIRATIONS ARE EVEN AND UNLABORED, NOT IN ANY ACUTE DISTRESS NOTED. PT DENIES ANY PAIN AT THIS TIME, NO C/O SOB, N/V. IV SITE TO LEFT HAND INTACT, NO INFILTRATION NOTED. DRESSING KEPT CLEAN AND DRY. SAFETY MEASURES ARE IN PLACE. REMINDED PT TO USE CALL LIGHT WHEN ASSISTANCE IS NEEDED, CALL LIGHT IS LEFT WITHIN REACH. WILL ENDORSE TO NEXT SHIFT FOR CONTINUITY OF CARE.
--- NOTE | 2019-01-18 19:10 | NUR ---
rn initial notes: received report from harry george. pt in bed, awake, family at bed side, pt persian speaking only. on ra respirations even and unlabored. iv access patent and flushing well, infusing with ns at 75ml/hr. pt s/p unit prbc today. latest h/h . no s/s of active bleeding noted. s/p rigth hip im rodding with dr kuo on 01/15/19. rigth hip sx site covered with dressing. site clean with no unwanted drainage or odor noted. healing stage. dressing c/d/i. ble offloaded. safety precautions for fall initiated, call light in reach, will continue monitoring pt.
--- NOTE | 2019-01-18 20:32 | NUR ---
rn notes: met with family at bed side. answer questions.
[2019-01-18] MEDS: SENNOSIDES 8.6 MG TABLET PO SCH (21:02)
--- NOTE | 2019-01-18 21:13 | NUR ---
prn dilaudid: pt c/o 12/20 right hip pain as translated by pt's . prn dilaudid 1 mg ivp administered to pt at this time. will continue to monitor and reassess for effectiveness of medications.
--- NOTE | 2019-01-19 00:21 | NUR ---
rn notes: pt sleeping at this time, no facial grimace noted, appears calm and comfortable
[2019-01-19] MEDS: HYDROMORPHONE 1 MG/1 ML DISP.SYRIN IV PRN ×4 (02:36→17:06)
--- NOTE | 2019-01-19 02:37 | NUR ---
prn dilaudid: pt c/o right hip pain ps 8/, prn dilaudid 1 mg administered at this time, will continue to monitor and reassess pt
--- NOTE | 2019-01-19 06:29 | NUR ---
prn dilaudid: pt c/o rlq abdominal pain, pt pointing on her right abdomen area. prn dilaudid 1 mg ivp administered at this time. will continue to monitor and reassess
[2019-01-19 06:32] LABS: BASOPHILS % (AUTO) 0.3 % (0.0-2.0); EOSINOPHILS % (AUTO) 0.9 % (0.0-6.0); HEMATOCRIT 24 % (33-45); HEMOGLOBIN 8.1 g/dL (11.5-14.8); LYMPHOCYTES # (AUTO) 1.6 /CMM (0.8-4.8); LYMPHOCYTES % (AUTO) 18.2 % (20.0-44.0); MEAN CORPUSCULAR HGB CONC 33 g/dl (31.0-36.0); MEAN CORPUSCULAR VOLUME 73 fL (82-100); MONOCYTES # (AUTO) 0.6 /CMM (0.1-1.30); MONOCYTES % (AUTO) 6.8 % (2.0-12.0); NEUTROPHILS # (AUTO) 6.5 /CMM (1.8-8.9); NEUTROPHILS % (AUTO) 73.8 % (43.0-81.0); PLATELET COUNT (AUTO) 213 /CMM (150-450); RED BLOOD CELL COUNT(AUTO) 3.34 MIL/uL (4.0-5.2); WHITE BLOOD COUNT (AUTO) 8.8 K/uL (4.3-11.0)
[2019-01-19 06:43] LABS: ALBUMIN 2.4 g/dL (3.4-5.0); BILIRUBIN,TOTAL 1.8 mg/dL (0.2-1.0); CALCIUM, SERUM 8.2 mg/dL (8.5-10.1); CREATININE 0.7 mg/dL (0.6-1.3); MAGNESIUM 1.9 mg/dL (1.8-2.4); PHOSPHORUS 2.4 mg/dL (2.5-4.9); POTASSIUM 3.4 mmol/L (3.5-5.1); TOTAL PROTEIN, SERUM 5.9 g/dL (6.4-8.2)
--- NOTE | 2019-01-19 07:05 | NUR ---
rn closing notes: pt in bed, sleeping. respirations even and unlabored. iv access remains patent and flushing well, infusing with ivf as ordered. right hip dressing remains c/d/i, no s/s of active bleeding noted. vs remains stable, needs attended. safety precautions for fall remains engaged. call light in reach, will endorse to day rn for continuity of care.
--- NOTE | 2019-01-19 07:35 | NUR ---
MS RN OPENING NOTES RECEIVED PT SITTING UPRIGHT IN BED, RESTING COMFORTABLY. PT IS A/O X4, AFEBRILE. RESPIRATIONS ARE EVEN AND UNLABORED, NOT IN ANY ACUTE DISTRESS NOTED. PT DENIES ANY SOB, N/V AT THIS TIME. IV SITE TO LEFT HAND INTACT, NO INFILTRATION NOTED. DRESSING KEPT CLEAN AND DRY. SAFETY MEASURES ARE IN PLACE. INSTRUCTED PT TO USE CALL LIGHT WHEN ASSISTANCE IS NEEDED, CALL LIGHT IS LEFT WITHIN REACH. WILL MONITOR THROUGHOUT SHIFT FOR CONTINUITY OF CARE.
[2019-01-19 08:00] VITALS: BP 146/71
[2019-01-19 08:08] LABS: *SPE A/G RATIO 0.9 (0.7-1.7); *SPE ALPHA-1-GLOBULIN 0.6 g/dL (0.0-0.4); *SPE BETA GLOBULIN 1.1 g/dL (0.7-1.3); *SPE GLOBULIN, TOTAL 3.4 g/dL (2.2-3.9); *SPE M-SPIKE Not Observed g/dL (Not Observed); *SPEGAMMA GLOBULIN 0.8 g/dL (0.4-1.8)
[2019-01-19] MEDS: FAMOTIDINE/PF INJ 20 MG/2 ML VIAL IV SCH (08:26)
[2019-01-19] MEDS: GLUCERNA SHAKE 237 ML CAN PO SCH ×2 (08:26→17:00)
[2019-01-19] MEDS: DOCUSATE SODIUM 100 MG CAPSULE PO SCH ×2 (08:26→16:59)
[2019-01-19] MEDS: AMLODIPINE BESYLATE 5 MG TABLET PO SCH (08:27)
[2019-01-19] MEDS: ISONIAZID (300 MG) 300 MG TABLET PO SCH (08:27)
[2019-01-19] MEDS: FLUTICASONE/VILANTEROL 1 EACH BLST.W.DEV IH SCH (08:28)
[2019-01-19] MEDS: PYRIDOXINE HCL 50 MG TABLET PO SCH (08:28)
[2019-01-19] MEDS ORDERED: POTASSIUM CHLORIDE 20 MEQ TAB.PRT.SR PO ONE (08:30)
[2019-01-19 08:31] VITALS: BP 146/77
--- NOTE | 2019-01-19 13:28 | NUR ---
MS RN NOTES-- CALLED PHARMACY RE: SANYA, SPOKE WITH ENRICO. PER ENRICO, THEY WILL SEND UP.
--- NOTE | 2019-01-19 13:30 | NUR ---
MS RN NOTES-- PT WAS SEEN AND EXAMINED BY PT.
[2019-01-19] MEDS: SOD FERRIC GLUC 125 MG in IV NS 0.9% 100 ML IV SCH (15:45)
[2019-01-19 15:57] VITALS: BP 138/73
[2019-01-19] MEDS: RIVAROXABAN 10 MG TABLET PO SCH (17:00)
--- NOTE | 2019-01-19 17:25 | NUR ---
MS CHARTER COACH DRIVER NOTE PT DISCHARGED TO [facility] VIA [facility] ACCOMPANIED BY 2 EMT PERSONNEL. PT IS A/O X3-4, AFEBRILE. RESPIRATIONS ARE EVEN AND UNLABORED, NOT IN ANY ACUTE DISTRESS NOTED. DENIES ANY SOB, N/V. PT COMPLAINED OF PAIN TO RIGHT HIP W/ PL 8/10, MEDICATED ORDERED FOR PAIN MANAGEMENT. ABDOMEN IS SOFT AND NONDISTENDED, BOWEL SOUNDS ARE PRESENT IN ALL 4 QUADRANTS UPON AUSCULTATION. DENIES ANY BLADDER DISCOMFORT. PICTURES TAKEN TO RIGHT HIP SURGICAL INCISION SITE, PLACED IN CHART, ALONG WITH RIGHT HAND SCABS TAKEN LESS THAN 24 HOURS. EXPLAINED DISCHARGE PAPERWORK TO [facility] WITH VERBAL AND WRITTEN UNDERSTANDING. CALLED [facility], SPOKE WITH VAL NASSAR FOR REPORT. ALL DUE MEDS GIVEN DURING TIME OF CARE, TOLERATED WELL. ALL BELONGINGS SENT WITH PT. PT LEFT IN STABLE CONDITION.
== END 2019-01-19 17:25 | DRG 481 ==
LOC: ER 14:00 → MEDSG2 17:07
PROVIDERS: ADMIT Nurse Practitioner Acute Care; ATTEND Nurse Practitioner Acute Care
PROC: 0QS606Z Reposition Right Upper Femur with Intramedullary Internal Fixation Device, Open Approach (ICD-10-PCS; principal; 2019-01-15)
PROC: 30233N1 Transfusion of Nonautologous Red Blood Cells into Peripheral Vein, Percutaneous Approach (ICD-10-PCS; 2019-01-18)
DX: S72.141A Displaced intertrochanteric fracture of right femur, initial encounter for closed fracture (principal); C18.9 Malignant neoplasm of colon, unspecified; I10 Essential (primary) hypertension; F17.210 Nicotine dependence, cigarettes, uncomplicated; E66.01 Morbid (severe) obesity due to excess calories; D72.829 Elevated white blood cell count, unspecified; J44.9 Chronic obstructive pulmonary disease, unspecified; E87.6 Hypokalemia; F41.9 Anxiety disorder, unspecified; G47.00 Insomnia, unspecified; M19.019 Primary osteoarthritis, unspecified shoulder; D50.9 Iron deficiency anemia, unspecified; Z68.34 Body mass index [BMI] 34.0-34.9, adult; Z71.6 Tobacco abuse counseling; Z71.3 Dietary counseling and surveillance; W19.XXXA Unspecified fall, initial encounter; Y93.9 Activity, unspecified; Y92.510 Bank as the place of occurrence of the external cause
CPT/HCPCS: 36415; 71045-TC; 73030-TC; 73501; 73502; 73552; 73700-TC; 73721-TC; 80048-TC; 80053-TC; 80061-TC; 80076-TC; 81000-TC; 82728-TC; 82784; 83540-TC; 83735-TC; 84100-TC; 84155; 84165; 84439-TC; 84443-TC; 84484-TC; 85025-TC; 85027-TC; 85730-TC; 86334; 86850-TC; 86921-TC; 87081-TC; 93307-TC; 97110-TC; 97116-TC; 97530-TC; A6209; C1713; C1751; G0378; J0330; J0690; J1100; J1170; J1650; J2060; J2405; J2704; J2710; J2916; J3490; J7030; J7060; P9016-BL